=== PATIENT | male | born 1945 ===

== ENCOUNTER 2024-02-12 08:43 | Outpatient (RCR) | payer MEDICARE, BC, SELFPAY ==
--- NOTE | 2024-02-12 09:55 | OPREHPOC ---
Outpatient Therapy Plan of Care This is a Multidisciplinary Plan of Care that may contain components documented by all disciplines (PT, OT, and ST.) PT Problem 1 PT Problem #1 Knowledge Deficit PT Goal 1 Goal 1. independent and compliant with HEP Target Visit 6 PT Problem 2 PT Problem #2 Pain PT Goal 1 Goal 1. patient to report no more than 2/10 pain in the L buttock in the last week. Target Visit 12 PT Problem 3 PT Problem #3 Impaired Flexibility PT Goal 1 Goal 1. improve bilateral hamstrings flexibility to 25 degrees or less from 0 per the 90/90 test. Target Visit 12 PT Problem 4 PT Problem #4 Impaired Strength PT Goal 1 Goal 1. improve L hamstrings strength to 5/5 Target Visit 12 PT Problem 5 PT Problem #5 Impaired Functional Mobil PT Goal 1 Goal 1. LEFS to display 20% or less functional deficits 2. patient to tolerate riding in the car more than 1 hour Target Visit 12
--- NOTE | 2024-02-12 09:55 | PTOPEVAL1 ---
Assessment and note entered by JT File, PT Evaluation Information Assessment Status Evaluation Diagnosis ischial bursitis Other ICD-10 Condition Codes ( M70.72 PT) Onset 01/14/24 Subjective Information patient reports he has had a problem for a long time sitting on his L side. he reports he was getting better, but then this past sunday he slipped on a wet floor and now he has pain and tenderness in the L buttock. he reports he can feel it at times down to the L ankle. he reports he has dull achy pain at this time, but was sharp during the slip. he reports he has increased pain with sitting. he reports he struggles to sit in a car and drive due to his pain. he reports he has had no imaging of the L hip area. Reported Pain Level Pain Score 5: Self Report Assessment PT Clinical Summary mr. carias is a pleasant 78 yo man who presents to skilled PT services for evaluation and treatment of L hip pain. he presents today with signs and symptoms indicative of a L hamstrings tendonitis/ ischial bursitis. he presents with L hamstrings weakness, increased L hamstrings tightness, and pain with palpation/pressure in the area. continued skilled PT is indicated to improve his objective/functional deficits and progress towards return to prior level functional activity performance/quality of life. Plan of Care Interventions Hot Pack/Cold Pack,Manual Therapy,Neuro Re- education,Patient/Caregiver Educati,Therapeutic Activities,Therapeutic Exercise,Other Other Interventions dry needling PT Services Indicated Yes Treatment Frequency and 3x weekly for 12 visits Duration These treatments will address the objective and functional deficits as defined above. The patient will be advanced safely and appropriately in order for the patient to progress towards his/her prior level of function. Additional exercises will be introduced and as well as a comprehensive home exercise program upon discharge, if needed, ?to ensure carryover of functional gains achieved in the clinic. This treatment plan has been reviewed and agreement upon by the patient.
--- NOTE | 2024-02-20 08:35 | OPREHPOC ---
Outpatient Therapy Plan of Care This is a Multidisciplinary Plan of Care that may contain components documented by all disciplines (PT, OT, and ST.) PT Problem 1 PT Problem #1 Knowledge Deficit PT Goal 1 Goal 1. independent and compliant with HEP Target Visit 6 Progress Met PT Problem 2 PT Problem #2 Pain PT Goal 1 Goal 1. patient to report no more than 2/10 pain in the L buttock in the last week. Target Visit 12 Progress Met PT Problem 3 PT Problem #3 Impaired Flexibility PT Goal 1 Goal 1. improve bilateral hamstrings flexibility to 25 degrees or less from 0 per the 90/90 test. Target Visit 12 Progress Partially Met PT Problem 4 PT Problem #4 Impaired Strength PT Goal 1 Goal 1. improve L hamstrings strength to 5/5 Target Visit 12 Progress Met PT Problem 5 PT Problem #5 Impaired Functional Mobil PT Goal 1 Goal 1. LEFS to display 20% or less functional deficits 2. patient to tolerate riding in the car more than 1 hour Target Visit 12 Progress Met
--- NOTE | 2024-02-20 08:35 | PTOPDC ---
Assessment and note entered by JT File, PT Evaluation Information Assessment Status Discharge Diagnosis ischial bursitis Other ICD-10 Condition Codes ( M70.72 PT) Onset 01/14/24 Subjective Information patient reports he feels Good today. he reports he no longer has pain in the L buttock. he reports he has been compliant with his HEP at home. he reports he feels he is ready to DC therapy today. Reported Pain Level Pain Score 0: Self Report Assessment PT Clinical Summary mr. carias presents to skilled PT for his 5th skilled therapy visit today. he presents with no pain any longer in the L buttock. he reports no limitations in sitting and riding in a car any longer. he has met nearly all goals for skilled PT , and only lacks achievement of R hamstrings flexibility goal. he will DC skilled PT today, and continue with HEP independent at home. Plan of Care PT Services Indicated Yes
== END 2024-02-20 12:54 | disposition home or self-care (01) ==
LOC: CHSPT 08:43
PROVIDERS: Visit Provider Family Medicine
DX: M70.72 Other bursitis of hip, left hip (principal)
CPT/HCPCS: 97110; 97140; 97161